=== PATIENT | female | born 1960 | race African-American/Black ===

== ENCOUNTER 2022-03-14 05:58 | Day surgery (SDC) | payer BC ==
[2022-03-13 09:41] VITALS: BMI 41.1
[2022-03-14] MEDS ORDERED: Bupivacaine 0.25% HCL 30 ML VIAL ONE (06:41)
[2022-03-14] MEDS ORDERED: EPINEPHrine 1 MG/ML AMP ONE (06:41)
[2022-03-14] MEDS ORDERED: Lidocaine 1% MPF 2 ML VIAL ONE (06:43)
[2022-03-14] MEDS ORDERED: Midazolam HCl 2 mg/2 ml Vial ONE (07:20)
[2022-03-14] MEDS ORDERED: PROPOFOL 20 ML ONE (07:26)
[2022-03-14] MEDS ORDERED: Fentanyl 100 MCG/2 ML VIAL ONE ×3 (07:26→09:38)
[2022-03-14] MEDS ORDERED: Rocuronium Bromide 10 MG/ML (10ML VIAL) ONE (07:27)
[2022-03-14] MEDS ORDERED: Lidocaine 1% PF 5 ML VIAL ONE (07:27)
[2022-03-14] MEDS ORDERED: Ondansetron PF 4 MG/2 ML Vial ONE (08:15)
[2022-03-14] MEDS ORDERED: Ketorolac Tromethamine 30 MG/ML VIAL ONE (08:16)
[2022-03-14] MEDS ORDERED: Famotidine/PF 20 mg/2ml Vial ONE (09:44)
== END 2022-03-14 11:05 | disposition home or self-care (01) ==
LOC: CSHSDC 05:58
PROVIDERS: ATTEND Surgery
PROC: 0FT44ZZ Resection of Gallbladder, Percutaneous Endoscopic Approach (ICD-10-PCS; principal; 2022-03-14)
DX: K80.12 Calculus of gallbladder with acute and chronic cholecystitis without obstruction (principal); Z79.899 Other long term (current) drug therapy; D86.9 Sarcoidosis, unspecified
CPT/HCPCS: 88304; 93005; 93010; C1713; J0171; J1885; J2250; J2405; J2704; J3010; J3490; S0020; S0028

== ENCOUNTER 2023-04-01 16:46 | Emergency (ER) | payer BC ==
[2023-04-01] MEDS ORDERED: Acetaminophen 500 MG TAB ONE (18:31)
[2023-04-01] MEDS ORDERED: Ibuprofen 200 MG TAB ONE (18:31)
== END 2023-04-01 18:35 | disposition home or self-care (01) ==
LOC: CSHERS 16:46
DX: S09.90XA Unspecified injury of head, initial encounter (principal); W20.8XXA Other cause of strike by thrown, projected or falling object, initial encounter; Y99.0 Civilian activity done for income or pay
CPT/HCPCS: 70450

== ENCOUNTER 2025-10-06 10:01 | Outpatient (CLI) | payer OTHER | END 2025-10-06 10:02 | disposition home or self-care (01) | LOC: CSHSLEEP 10:01 | PROVIDERS: ATTEND Student in an Organized Health Care Education/Training Program | DX: G47.33 Obstructive sleep apnea (adult) (pediatric) (principal); R53.83 Other fatigue; E66.9 Obesity, unspecified; Z68.41 Body mass index [BMI] 40.0-44.9, adult; R06.83 Snoring; I10 Essential (primary) hypertension | CPT/HCPCS: 95800 ==